=== PATIENT | male | born 1965 | race Caucasian/White ===

== ENCOUNTER 2019-06-16 10:59 | Emergency (ER) | payer MEDICAID ==
[~2019-06-16] VITALS: Ht 157.5 cm; Wt 73.0 kg
[2019-06-16] MEDS ORDERED: IBUPROFEN 600MG TABLET PO STA (13:02)
[2019-06-16 13:39] VITALS: BP 129/61
== END 2019-06-16 13:32 | disposition home or self-care (01) ==
LOC: ER 10:59
DX: M25.562 Pain in left knee (principal)
CPT/HCPCS: 99283